=== PATIENT | female | born 1990 | race Caucasian/White ===

== ENCOUNTER 2016-09-10 09:45 | Outpatient (CLI) | payer OTHER ==
[2016-04-06 01:42] VITALS: BP 149/62
== END 2016-09-10 09:46 ==
LOC: LAB 09:45
DX: Z79.899 Other long term (current) drug therapy (principal)
CPT/HCPCS: 36415; 80061; 83036

== ENCOUNTER 2016-11-25 12:11 | Emergency (ER) | payer OTHER ==
[2016-11-25] MEDS ORDERED: KETOROLAC TROMETHAMINE 60 MG/2 ML VIAL IM ONE (13:34)
--- NOTE | 2016-11-25 13:34 | ED Physician Documentation ---
General Adult - HISTORIAN Historian: patient - HPI Stated Complaint: Right Foot Pain Chief Complaint: General Adult Further Comments: yes (26 year old female patient presents with complaint of foot pain, denies injury. States it started hurting yesterday, has not taken any OTC medications.) - ROS CONST: no problems EYES/ENT: none GI/: none MS/SKIN/LYMPH: none NEURO/PSYCH: denies: headache - PAST HX Past History: other (depression, hypothyroid, HTN) Allergies/Adverse Reactions: Allergies Allergy/AdvReac Type Severity Reaction Status Date / Time No Known Allergies Allergy Verified 11/25/16 12:34 Home Medications: Ambulatory Orders Medication Instructions Recorded Amoxicillin/Potassium Clav 1 each PO BID #20 tablet 04/06/16 [Augmentin 875-125 Tablet] Levonorgestrel [Mirena] 1 insert IU 1T 04/06/16 Sertraline HCl [Zoloft] 25 mg PO D 04/06/16 - SOCIAL HX Smoking History: cigarettes - FAMILY HX Family History: No - VITAL SIGNS Vital Signs: Vital Signs Temp Pulse Resp BP Pulse Ox 98 F 88 18 149/101 96 11/25/16 12:15 11/25/16 12:15 11/25/16 12:15 11/25/16 12:15 11/25/16 12:15 - REVIEWED ASSESSMENTS Nursing Assessment Reviewed: Yes Vitals Reviewed: Yes Progress - Progress Progress: Reviewed xray results with patient, encouraged use of tylenol or ibuprofen. Verbalized understanding. ED Results Lab/Radiology - Radiology Radiology Impressions: Right foot 3 views History: Pain after fall Findings: A small heel spur is present. The right foot is otherwise normal without fracture, dislocation, arthropathy, or focal bone lesion. 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
[2016-11-25 13:40] VITALS: BP 135/68
--- NOTE | 2016-11-25 20:32 | Diagnostic Imaging Report ---
EB REEVES (ERIK) - ER~ [facility] [address] [facility].[address] [address] ~ ~ ~ ~ Report Submission Date: Nov 25, 2016 1:15:40 PM CDT Patient ~ Study Name: LINDA TAVERA ~ Date: Nov 25, 2016 12:43:35 PM CDT ~ Modality Type: CR Gender: F ~ Description: LOWER EXTREMITY : 88 ~ Institution: [facility] Physician: EB REEVES) - ER ~ ~ ~ ~ Right foot 3 views History: Pain after fall Findings: A small heel spur is present. The right foot is otherwise normal without fracture, dislocation, arthropathy, or focal bone lesion. ~ Electronically signed on Nov 25, 2016 1:15:40 PM CDT by: Mark RUIZ
== END 2016-11-25 13:39 | disposition home or self-care (01) ==
LOC: ED 12:11
DX: M79.671 Pain in right foot (principal)
CPT/HCPCS: 73630; 99283

== ENCOUNTER 2017-10-16 15:49 | Emergency (ER) | payer OTHER ==
[2017-10-16 16:20] VITALS: BP 178/104
--- NOTE | 2017-10-16 16:48 | ED Physician Documentation ---
General Adult - HISTORIAN Historian: patient - HPI Stated Complaint: Swelling to Lt side of neck at jaw line/cough Chief Complaint: General Adult Additional Information: PT ATE CORN DOG AND CHIPS APPROX 12 HR AGO NEAR IMMEDIATELY AFTERWARD SWELLING LT PAROTID GLAND BECAME SIG SWOLLEN AND SLIGHTLY TENDER. THE SWELLING HAS ALMOST TOTALLY SUBSIDED BY NOW. Onset: hours (1) Timing: better Severity: mild - ROS CONST: no problems, other (HAS URI W/COUGH RECENT SINUSITIS) EYES/ENT: denies: problems with vision CVS/RESP: none GI/: none MS/SKIN/LYMPH: none - PAST HX Past History: other (LOW THRYOID DEP;RESSION GERD HTN) Surgeries/Procedures: none Immunizations: UTD (HAD MMR CHILD) Allergies/Adverse Reactions: Allergies Allergy/AdvReac Type Severity Reaction Status Date / Time No Known Allergies Allergy Verified 11/25/16 12:34 Home Medications: Ambulatory Orders Medication Instructions Recorded Sertraline HCl [Zoloft] 25 mg PO D 04/06/16 Benzonatate [Tessalon Perles] 200 mg PO 10/16/17 - SOCIAL HX Smoking History: greater than 1 pack/day Alcohol Use: none Drug Use: none - FAMILY HX Family History: No - VITAL SIGNS Vital Signs: Vital Signs Temp Pulse Resp BP Pulse Ox 98.4 F 90 18 178/104 97 10/16/17 15:50 10/16/17 15:50 10/16/17 15:50 10/16/17 15:50 10/16/17 15:50 - REVIEWED ASSESSMENTS Nursing Assessment Reviewed: Yes Vitals Reviewed: Yes General Adult Physical Exam - PHYSICAL EXAM GENERAL APPEARANCE: mild distress EENT: eye inspection normal NECK: normal inspection, thyroid normal, supple. No: lymphadenopathy ( POSSIDBLE POST LT SUBMANDIBULAR AREA-PAROTID APPEARS STILL VERY SLIGHTLY INDURATED PAROTID DUCT VIS W/O INFLAMATION OR STONE) RESPIRATORY: no resp distress CVS: reg rate & rhythm, heart sounds normal ABDOMEN: soft, non-tender SKIN: warm/dry, normal color. No: cyanosis, diaphoresis, jaundice NEURO: oriented X3, mood/affect nml Discharge Clincal Impression: PAROTID DUCT OBSTRUCTION-RESOLVING, HX RECENT SINUSITIS, HX OTITIS, NICOTINE ABUSE Referrals: Nelson Cunningham MD [Primary Care Provider] - 2 Days Comments: HOME STAY WELL HYDRATED SUCK LEMON DROOPS 2-3/PER DAY FOR 4-5DAYS-RX FOR KEFLEX SY WORSEN AND BECOMES WARM REDNESS DEVELOPS-SEE ENT IF PERSISTS Condition: Good Disposition: 01 HOME, SELF-CARE Decision to Admit: NO Decision Time: 16:55
== END 2017-10-16 16:40 | disposition home or self-care (01) ==
LOC: ED 15:49
DX: K11.8 Other diseases of salivary glands (principal); Z87.09 Personal history of other diseases of the respiratory system; F17.200 Nicotine dependence, unspecified, uncomplicated
CPT/HCPCS: 99282

== ENCOUNTER 2017-10-25 13:16 | Outpatient (CLI) | payer OTHER | END 2017-10-25 13:18 | LOC: LABRHC 13:16 | PROVIDERS: ATTEND Physician Assistant | DX: Z01.419 Encounter for gynecological examination (general) (routine) without abnormal findings (principal) | CPT/HCPCS: 88148; G0143 ==

== ENCOUNTER 2017-11-08 17:51 | Emergency (ER) | payer OTHER ==
--- NOTE | 2017-11-08 19:14 | ED Physician Documentation ---
Lower Extremity Injury - HISTORIAN Historian: patient - HPI Stated Complaint: R ankle pain Chief Complaint: Lower Extremity Problem Additional Information: Long time right ankle pain. Played frisbee three weeks ago and pain has been consistently worse, in spite of 600 mg ibuprofen 3x/day. Points to ventral ankle as site of worst pain. Has not seen her primary or orthopedics. - ROS CONST: no problems - PAST HX Past History: none Allergies/Adverse Reactions: Allergies Allergy/AdvReac Type Severity Reaction Status Date / Time No Known Allergies Allergy Verified 11/08/17 18:12 Home Medications: Ambulatory Orders Medication Instructions Recorded Sertraline HCl [Zoloft] 25 mg PO D 04/06/16 - SOCIAL HX Smoking History: non-smoker - FAMILY HX Family History: no significant history - VITAL SIGNS Vital Signs: Vital Signs Temp Pulse Resp BP Pulse Ox 86 16 170/119 98 11/08/17 18:00 11/08/17 18:00 11/08/17 18:00 11/08/17 18:00 - REVIEWED ASSESSMENTS Nursing Assessment Reviewed: Yes Vitals Reviewed: Yes Progress - Progress Progress: Patient Study Name: LINDA TAVERA Date: November 08, 2017 6:37:22 PM CDT Modality Type: DX Gender: F Description: LOWER EXTREMITY : 88 Institution: [facility] Physician: PAOLA MCKENNA Right ankle 3 views History: 3 weeks of pain without injury Findings: An anterior ankle ossicle appears chronic. A small plantar heel spur is observed. There is no acute fracture, dislocation, arthropathy, or focal bone lesion. Impression: Old anterior ankle ossicle and small heel spur. Electronically signed on November 08, 2017 7:01:12 PM CDT by: Mark Joel ED Results Lab/Radiology - Orders Orders: ED Orders Category Date Time Status RIGHT ANKLE [ANKLE 3 VIEWS OR MORE] [RAD] Stat Exams 11/08/17 Taken URINE HCG Stat Lab 11/08/17 Uncollected Lower Extremities Injury Phy - Physical Exam General Appearance: no acute distress, alert Hips: bilateral hip: no evidence of injury Legs: bilateral: normal inspection, no evidence of injury Knees: bilateral: no evidence of injury Ankle: right: non-tender, other (DP 1+), bilateral: normal inspection, no evidence of injury Foot: right foot: normal inspection, bilateral foot: no evidence of injury Gait: antalgic gait Neuro/Vascular/Tendon: no vascular compromise, motor nml, sensation nml Head/ENT: nml inspection (except poor dentition) Neck/Back: nml inspection Resp/CVS: no resp. distress Discharge Clincal Impression: Ankle pain, chronic Qualifiers: Laterality: right Qualified Code(s): M25.571 - Pain in right ankle and joints of right foot; G89.29 - Other chronic pain; G89.29 - Other chronic pain Referrals: Nelson Cunningham MD [Primary Care Provider] - 2 Days Condition: Good Disposition: 01 HOME, SELF-CARE Decision to Admit: NO Decision Time: 19:17
[2017-11-08 19:50] VITALS: BP 168/104
--- NOTE | 2017-11-09 06:38 | Diagnostic Imaging Report ---
PAOLA MCKENNA [facility] [address] [facility].[address] [address] Report Submission Date: November 08, 2017 7:01:12 PM CDT Patient Study Name: LINDA TAVERA Date: November 08, 2017 6:37:22 PM CDT Modality Type: DX Gender: F Description: LOWER EXTREMITY : 88 Institution: [facility] Physician: PAOLA MCKENNA Right ankle 3 views History: 3 weeks of pain without injury Findings: An anterior ankle ossicle appears chronic. A small plantar heel spur is observed. There is no acute fracture, dislocation, arthropathy, or focal bone lesion. Impression: Old anterior ankle ossicle and small heel spur. Electronically signed on November 08, 2017 7:01:12 PM CDT by: Mark RUIZ
== END 2017-11-08 19:35 | disposition home or self-care (01) ==
LOC: ED 17:51
DX: M25.571 Pain in right ankle and joints of right foot (principal); G89.29 Other chronic pain
CPT/HCPCS: 73610; 81025; 99283

== ENCOUNTER 2018-03-14 10:36 | Outpatient (CLI) | payer OTHER ==
[2018-03-14 11:40] LABS: eGFR (Non-African) > 60
[2018-03-14 20:40] LABS: BASO % 0.4 % (0.0-1.5); EOS % 1.6 % (0.0-6.8); LYMPH ABS # 3.56 thou/uL (0.60-4.00); MCH. 26.9 pg (28.0-34.0); MCV 82.3 fL (80.0-100.0); MONOCYTE % 4.2 % (0.0-11.0); MONOCYTE ABS # 0.41 thou/uL (0.00-0.90); PLATELET COUNT 364 thou/uL (130-400)
== END 2018-03-14 10:38 ==
LOC: LAB 10:36
PROVIDERS: ATTEND Physician Assistant
DX: E03.9 Hypothyroidism, unspecified (principal); R53.83 Other fatigue
CPT/HCPCS: 80053; 84439; 84443; 84481; 85025

== ENCOUNTER 2018-03-20 14:40 | Emergency (ER) | payer OTHER ==
--- NOTE | 2018-03-20 15:25 | ED Physician Documentation ---
Ear Complaints - HPI Stated Complaint: ear pain, sore throat Chief Complaint: Ear Complaints Additional Information: Left ear and left throat pain for 4 days. No fever or cough. Hasn't put anything in her ears but soap and water. Some sinus congestion , but no different than usual. No othe modifying factors or associated signs. - ROS CONST: no problems - PAST HX Past History: none Allergies/Adverse Reactions: Allergies Allergy/AdvReac Type Severity Reaction Status Date / Time No Known Allergies Allergy Verified 03/20/18 14:56 Home Medications: Ambulatory Orders Medication Instructions Recorded Neomycin/Polymyxin B/Hydrocort 4 drop LEFT EAR QID 7 Days #10 ml 03/20/18 [Sgctxocf-Noupdrlir-Vn Ear Soln] - SOCIAL HX Smoking History: cigarettes - FAMILY HX Family History: No - VITAL SIGNS Vital Signs: Vital Signs Temp Pulse Resp BP Pulse Ox 98.2 F 75 20 173/107 97 03/20/18 14:46 03/20/18 14:46 03/20/18 14:46 03/20/18 14:46 03/20/18 14:46 - REVIEWED ASSESSMENTS Nursing Assessment Reviewed: Yes Vitals Reviewed: Yes Ear Complaint Physical Exam - EXAM General Appearance: no acute distress, alert 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 distress, lungs clear Skin: nml color, no skin rash Neuro/Psych: mood/affect nml Discharge Clincal Impression: Ear pain, left Prescriptions: Neomycin/Polymyxin B/Hydrocort [Msdhaqwr-Boiqxuzvp-Ly Ear Soln] 4 drop LEFT EAR QID 7 Days #10 ml Referrals: Ashley Saleh PA [Primary Care Provider] - 2 Days Condition: Good Disposition: 01 HOME, SELF-CARE Decision to Admit: NO Decision Time: 15:25
[2018-03-20 15:33] VITALS: BP 170/100
== END 2018-03-20 15:29 | disposition home or self-care (01) ==
LOC: ED 14:40
DX: H92.02 Otalgia, left ear (principal)
CPT/HCPCS: 87070; 87880; 99283

== ENCOUNTER 2018-06-14 09:20 | Outpatient (CLI) | payer OTHER | END 2018-06-14 09:25 | disposition home or self-care (01) | LOC: LAB 09:20 | PROVIDERS: ATTEND Physician Assistant | DX: E03.9 Hypothyroidism, unspecified (principal) | CPT/HCPCS: 36415; 84439; 84443; 84481 ==